=== PATIENT | female | born 1990 | race Caucasian/White ===

== ENCOUNTER 2017-11-26 13:25 | Inpatient (IN) | payer OTHER ==
[2017-11-26] MEDS ORDERED: OXYTOCIN 30 UNITS/LR 500 ML IV ×4 (14:00→20:30)
[2017-11-26] MEDS ORDERED: CEFAZOLIN 2 GM/50 ML (PMX) 50 ML IV (14:00)
[2017-11-26] MEDS ORDERED: METHYLERGONOVINE 0.2 MG INJ IM ×2 (14:00→20:30)
[2017-11-26] MEDS ORDERED: MISOPROSTOL 200 MCG TAB PR ×2 (14:00→20:30)
[2017-11-26] MEDS ORDERED: CARBOPROST 250 MCG INJ IM ×2 (14:00→20:30)
[2017-11-26] MEDS: LACTATED RINGER'S 1,000 ML IV ×4 (14:09→20:23)
[2017-11-26 14:24] LABS: ADD MAN DIFF? NO
[2017-11-26 14:26] LABS: BASOPHILS % 0.3 % (0.0-2.0); EOSINOPHILS # 0.1 10^3/ul (0.0-0.5); EOSINOPHILS % 0.6 % (0.0-7.0); HEMATOCRIT 36.5 % (37.0-47.0); HEMOGLOBIN 12.5 g/dl (12.0-16.0); LYMPHOCYTES # 1.9 10^3/ul (0.8-2.9); LYMPHOCYTES % 15.2 % (15.0-51.0); MEAN CORPUSCULAR HEMOGLOBIN 31.5 pg (29.0-33.0); MEAN CORPUSCULAR HGB CONC 34.2 g/dl (32.0-37.0); MEAN CORPUSCULAR VOLUME 91.9 fl (82.0-101.0); MEAN PLATELET VOLUME 11.9 fl (7.4-10.4); MONOCYTE # 0.7 10^3/ul (0.3-0.9); MONOCYTES % 5.9 % (0.0-11.0); NEUTROPHIL # 9.6 10^3/ul (1.6-7.5); NEUTROPHILS % 77.5 % (39.0-77.0); PLATELET COUNT 207 10^3/UL (140-415); RED BLOOD COUNT 3.97 10^6/ul (4.20-5.40); RED CELL DISTRIBUTION WIDTH 12.9 % (11.5-14.5)
[2017-11-26 14:26] LABS: WHITE BLOOD COUNT 12.4 10^3/ul (4.8-10.8)
[2017-11-26] MEDS ORDERED: CITRIC ACID/SODIUM CITRATE 15 ML CUP (14:36)
[2017-11-26 14:42] LABS: RUPTURE FETAL MEMBRANES POSITIVE (NEGATIVE)
[2017-11-26 14:42] LABS: INR 0.89; PROTIME 12.1 Sec (11.9-14.9); PT RATIO 0.9
[2017-11-26 14:43] LABS: PARTIAL THROMBOPLASTIN TIME 29.6 Sec (25.0-35.0)
[2017-11-26] MEDS: CITRIC ACID/SODIUM CITRATE 15 ML CUP PO (14:43)
[2017-11-26] MEDS ORDERED: ONDANSETRON 4 MG INJ (15:09)
[2017-11-26] MEDS ORDERED: KETOROLAC 30 MG INJ (15:09)
[2017-11-26] MEDS ORDERED: morphine SULFATE/PF (10 MG/10 ML) INJ (15:09)
[2017-11-26] MEDS ORDERED: METOCLOPRAMIDE 10 MG INJ (15:09)
[2017-11-26 15:18] LABS: HEPATITIS B SURFACE ANTIGEN NEGATIVE (NEGATIVE)
[2017-11-26] MEDS ORDERED: EPHEDrine SULFATE 50 MG/5 ML SYG (15:18)
[2017-11-26 15:19] LABS: RAPID PLASMA REAGIN NONREACTIVE (NR)
[2017-11-26] MEDS ORDERED: MIDAZOLAM 1 MG/ML 2 ML INJ (15:31)
[2017-11-26] MEDS ORDERED: FENTAnyl 50 MCG/ML VIAL (15:31)
[2017-11-26] MEDS ORDERED: morphine (1 MG/ML) 10ML SYRINGE IV ×3 (17:00)
[2017-11-26] MEDS ORDERED: morphine 2 MG INJ IV ×2 (17:00)
[2017-11-26] MEDS ORDERED: NALOXONE (0.4 MG/ML) INJ IV (17:00)
[2017-11-26] MEDS ORDERED: ONDANSETRON 4 MG INJ IV ×2 (17:00)
[2017-11-26] MEDS: DIPHENHYDRAMINE 50 MG INJ IV (20:02)
[2017-11-26] MEDS ORDERED: HYDROCODONE/APAP (5/325) TAB PO (20:30)
[2017-11-26] MEDS ORDERED: NA PHOSPHATE/BIPHOS 133 ML ENEMA PR (20:30)
[2017-11-26] MEDS: LANOLIN 7 GM TUBE TOP (21:35)
[2017-11-26] MEDS: CEFAZOLIN 2 GM/50 ML (PMX) 50 ML IV (21:35)
[2017-11-26] MEDS: SENNA/DOCUSATE NA (8.6MG/50MG) TAB PO (21:35)
[2017-11-26] MEDS: IBUPROFEN 800 MG TAB PO (21:36)
[2017-11-26] MEDS: CLINDAMYCIN 300 MG CAP PO (23:55)
[2017-11-27] MEDS: CEFAZOLIN 2 GM/50 ML (PMX) 50 ML IV ×2 (04:38→13:23)
[2017-11-27] MEDS: LACTATED RINGER'S 1,000 ML IV ×3 (04:39→20:19)
[2017-11-27] MEDS: morphine 2 MG INJ IV ×2 (05:35→11:37)
[2017-11-27] MEDS: CLINDAMYCIN 300 MG CAP PO ×3 (05:35→17:55)
[2017-11-27] MEDS: IBUPROFEN 800 MG TAB PO ×3 (05:36→21:31)
[2017-11-27 08:20] LABS: ADD MAN DIFF? NO
[2017-11-27 08:27] LABS: BASOPHILS % 0.2 % (0.0-2.0); EOSINOPHILS # 0.1 10^3/ul (0.0-0.5); EOSINOPHILS % 0.6 % (0.0-7.0); HEMATOCRIT 28.3 % (37.0-47.0); HEMOGLOBIN 9.4 g/dl (12.0-16.0); LYMPHOCYTES # 1.9 10^3/ul (0.8-2.9); LYMPHOCYTES % 17.7 % (15.0-51.0); MEAN CORPUSCULAR HGB CONC 33.2 g/dl (32.0-37.0); MEAN CORPUSCULAR VOLUME 93.4 fl (82.0-101.0); MEAN PLATELET VOLUME 11.3 fl (7.4-10.4); MONOCYTE # 0.6 10^3/ul (0.3-0.9); NEUTROPHILS % 75.2 % (39.0-77.0); PLATELET COUNT 157 10^3/UL (140-415); RED BLOOD COUNT 3.03 10^6/ul (4.20-5.40)
[2017-11-27 08:27] LABS: WHITE BLOOD COUNT 10.6 10^3/ul (4.8-10.8)
[2017-11-27] MEDS: SENNA/DOCUSATE NA (8.6MG/50MG) TAB PO ×2 (09:25→21:31)
[2017-11-27] MEDS: BISACODYL 10 MG SUPP PR (17:45)
[2017-11-27] MEDS: OXYCODONE/ACETAMINOPHEN (5/325) TAB PO (17:56)
[2017-11-28] MEDS: CLINDAMYCIN 300 MG CAP PO ×4 (00:13→17:22)
[2017-11-28] MEDS: OXYCODONE/ACETAMINOPHEN (5/325) TAB PO ×2 (02:50→17:22)
[2017-11-28] MEDS: LACTATED RINGER'S 1,000 ML IV ×3 (04:19→20:19)
[2017-11-28] MEDS: IBUPROFEN 800 MG TAB PO ×3 (05:49→22:00)
[2017-11-28] MEDS: SENNA/DOCUSATE NA (8.6MG/50MG) TAB PO ×2 (09:00→21:00)
[2017-11-29] MEDS: CLINDAMYCIN 300 MG CAP PO ×3 (00:36→11:44)
[2017-11-29] MEDS: LACTATED RINGER'S 1,000 ML IV (04:19)
[2017-11-29] MEDS: IBUPROFEN 800 MG TAB PO (06:13)
[2017-11-29] MEDS: MEASLES,MUMPS,RUBELLA VACCINE INJ SC* (09:00)
[2017-11-29] MEDS: DIPHTH/TET/ACEL PERTUSS (ADULT) 0.5 ML VIAL IM* (09:00)
[2017-11-29] MEDS: SENNA/DOCUSATE NA (8.6MG/50MG) TAB PO (09:30)
== END 2017-11-29 13:50 | disposition home or self-care (01) | DRG 766 ==
LOC: OBT 13:25 → L-D 13:26 → OBT 13:30 → L-D 13:31 → PP1 20:50
PROVIDERS: Obstetrics & Gynecology
PROC: 10D00Z1 Extraction of Products of Conception, Low, Open Approach (ICD-10-PCS; principal; 2017-11-26 15:00)
DX: O34.211 Maternal care for low transverse scar from previous cesarean delivery (principal); Z37.0 Single live birth; Z3A.38 38 weeks gestation of pregnancy
CPT/HCPCS: 84112; 85025; 85610; 85730; 86592; 86850; 86900; 86901; 87340; 94760; 99464